=== PATIENT | male | born 1995 | race Caucasian/White ===

== ENCOUNTER 2021-06-17 05:42 | Emergency (ER) | payer SELFPAY ==
[~2021-06-17] VITALS: Ht 172.7 cm; Wt 114.3 kg
[2021-06-17 07:05] LABS: BASO % 0.3 % (0.0-1.0); HEMATOCRIT 40.5 % (42.0-52.0); LYMPH % 30.3 % (27.0-41.0); MEAN CELL VOLUME 86.9 fl (80.0-94.0); MEAN CORPUSCULAR HGB 31.5 pg (27.0-31.0); MEAN CORPUSCULAR HGB CONC 36.3 g/dl (33.0-37.0); MEAN PLATELET VOLUME 9.9 fl (9.6-12.3); MONO # 0.2 10*3/uL (0.1-1.0); MONO % 6.4 % (3.0-9.0); NEUT % 62.7 % (47.0-73.0); PLATELET COUNT AUTOMATED 137 10*3/uL (130-400); RED BLOOD COUNT 4.66 10*6/uL (4.50-5.90); RED CELL DISTRI WIDTH 11.6 % (0-14.5); WHITE BLOOD COUNT 3.1 10*3/uL (4.8-10.8)
[2021-06-17 07:21] LABS: ALKALINE PHOSPHATASE 57 U/L (45-117); BUN 8 mg/dl (7-24); CHLORIDE 106 mmol/L (98-107); CPK 182 U/L (39-308); CREATININE 0.76 mg/dL (0.70-1.30); POTASSIUM 3.5 mmol/L (3.5-5.1); SGOT/AST 54 IU/L (3-35); SGPT/ALT 69 U/L (12-78); SODIUM 137 mmol/L (136-145); TOTAL PROTEIN 7.1 gm/dL (6.4-8.2)
[2021-06-17 07:22] LABS: LDH 334 U/L (87-241)
[2021-06-17] MEDS ORDERED: ZITHROMAX250 MG PO (08:25)
[2021-06-17] MEDS ORDERED: ZOFRAN4 MG PO (08:25)
== END 2021-06-17 09:00 | disposition home or self-care (01) ==
LOC: ED 05:42
PROVIDERS: Emergency Medicine
DX: U07.1 COVID-19 (principal); R50.9 Fever, unspecified; R09.89 Other specified symptoms and signs involving the circulatory and respiratory systems